=== PATIENT | female | born 1990 | race Caucasian/White ===

== ENCOUNTER 2017-08-07 21:47 | Emergency (ER) | payer OTHER ==
[~2017-08-07] VITALS: Ht 162.6 cm; Wt 52.2 kg
[2017-08-08] MEDS ORDERED: KETO10TA2 PO (01:36)
== END 2017-08-08 02:04 | disposition home or self-care (01) ==
LOC: ER 21:47
DX: R10.2 Pelvic and perineal pain (principal)

== ENCOUNTER → 2018-02-24 | Emergency (ER) | payer OTHER ==
[~2018-02-24] VITALS: Ht 162.6 cm; Wt 54.4 kg
[~2018-02-24] MED LIST: KETO10TA2 PO
== END | disposition home or self-care (01) ==
LOC: ER 20:47
DX: R53.81 Other malaise (principal); F06.4 Anxiety disorder due to known physiological condition

== ENCOUNTER 2020-01-30 21:51 | Emergency (ER) | payer OTHER ==
[~2020-01-30] VITALS: Ht 162.6 cm; Wt 58.5 kg
== END 2020-01-30 22:51 | disposition home or self-care (01) ==
LOC: ER 21:51
DX: R20.0 Anesthesia of skin (principal); R51.9 Headache, unspecified; Z03.818 Encounter for observation for suspected exposure to other biological agents ruled out

== ENCOUNTER 2020-08-14 22:22 | Emergency (ER) | payer OTHER ==
[~2020-08-14] VITALS: Ht 162.6 cm; Wt 62.6 kg
[2020-08-15] MEDS ORDERED: FLONASE16 GM NASAL (03:20)
[2020-08-15] MEDS ORDERED: ZYNCOF 20-400120 ML PO (03:20)
== END 2020-08-15 03:56 | disposition home or self-care (01) ==
LOC: ER 22:22
DX: B34.9 Viral infection, unspecified (principal); J06.9 Acute upper respiratory infection, unspecified; Z11.52 Encounter for screening for COVID-19

== ENCOUNTER 2021-04-26 22:38 | Emergency (ER) | payer OTHER ==
[~2021-04-26] VITALS: Ht 162.6 cm; Wt 63.0 kg
[~2021-04-26 22:38] MED LIST changes: +FLONASE16 GM NASAL; +ZYNCOF 20-400120 ML PO
[2021-04-26] MEDS ORDERED: SYMAX DUOTAB0.375 MG (23:27)
== END 2021-04-27 01:10 | disposition home or self-care (01) ==
LOC: ER 22:38
DX: K29.70 Gastritis, unspecified, without bleeding (principal)

== ENCOUNTER 2022-02-10 17:37 | Emergency (ER) | payer OTHER ==
[~2022-02-10] VITALS: Ht 162.6 cm; Wt 61.7 kg
[~2022-02-10 17:37] MED LIST changes: +SYMAX DUOTAB0.375 MG
[2022-02-10] MEDS ORDERED: PEPCID AC20 MG PO (18:03)
== END 2022-02-10 23:44 | disposition home or self-care (01) ==
LOC: ER 17:37
DX: N39.0 Urinary tract infection, site not specified (principal)

== ENCOUNTER 2023-05-07 11:29 | Emergency (ER) | payer OTHER ==
[~2023-05-07] VITALS: Ht 162.6 cm; Wt 69.9 kg
[~2023-05-07 11:29] MED LIST changes: +PEPCID AC20 MG PO
[2023-05-07 12:17] LABS: HEMOGLOBIN 13.6 g/dL (12.0-15.00); MEAN CELL VOLUME 86.9 fL (80.00-100.00); MEAN CORPUSCULAR HEMOGLOBIN 29.5 pg (27.00-32.0); MEAN CORPUSCULAR HGB CONC 33.9 g/dl (32.0-36.0); PLATELET COUNT 311 K/uL (150-450); RED CELL DISTRIBUTION WIDTH 13.2 % (11.5-14.5)
[2023-05-07 13:05] LABS: URINE APPEARANCE Clear; URINE BILIRRUBIN Negative (NEGATIVE); URINE BLOOD Small; URINE COLOR Yellow; URINE GLUCOSE Negative (NEGATIVE); URINE LEUKOCYTE Negative; URINE NITRATE Negative; URINE PROTEIN Negative (NEGATIVE); URINE UROBILINOGEN 0.2 E.U./dl
[2023-05-07 13:08] LABS: URINE BACTERIA 1929.9 uL (0.0-1933); URINE EPITHELIAL CELLS 17.9 uL (0.0-38.8); URINE RBC 9.7 uL (0.0-20.8); URINE WBC 8.3 uL (0.0-23.2)
[2023-05-07] MEDS ORDERED: DICLOFENAC SODI75 MG PO (17:12)
== END 2023-05-07 17:24 | disposition home or self-care (01) ==
LOC: ER 11:29
PROVIDERS: Emergency Medicine
DX: R10.9 Unspecified abdominal pain (principal)

== ENCOUNTER 2025-01-05 18:03 | Emergency (ER) | payer OTHER ==
[~2025-01-05] VITALS: Ht 162.6 cm; Wt 65.8 kg
[~2025-01-05 18:03] MED LIST changes: +DICLOFENAC SODI75 MG PO
[2025-01-05 19:10] LABS: BASO % 0.5 % (0.1-1.2); EOS # 0.03 (0.04-0.54); EOS % 0.4 % (0.7-7.0); LYMPH # 2.55 (1.18-3.74); LYMPH % 32.3 % (19.3-53.1); MEAN PLATELET VOLUME 9.70 fl (9.4-12.4); MONO # 0.57 (0.24-0.82); MONO % 7.2 % (4.7-12.5); NEUT # 4.69 (1.56-6.13); NEUT % 59.5 % (34.0-71.1); RED CELL DISTRIBUTION WIDTH 12.4 % (11.6-14.4)
[2025-01-05 19:58] LABS: ALT/SGPT 21.0 U/L (12-78); AST/SGOT 13.0 U/L (15-37); BILIRUBIN TOTAL 0.46 mg/dL (0.3-1.2); BUN CREA RATIO 16.0 (7.0-25.0); CREATININE SERUM 0.75 mg/dL (0.55-1.02); GFR 89.55; GLOBULINA 3.2 G/DL (2.4-3.5); GLUCOSE FASTING 76.0 mg/dL (65-100); OSMOLALITY SERUM 283.0 MOSM/KG (275-295)
[2025-01-05 20:25] LABS: URINE APPEARANCE Clear; URINE BILIRRUBIN Negative (NEGATIVE); URINE BLOOD Moderate; URINE COLOR Yellow; URINE GLUCOSE Negative (NEGATIVE); URINE KETONE Trace (NEGATIVE); URINE LEUKOCYTE Trace; URINE NITRATE Negative; URINE PROTEIN Negative (NEGATIVE); URINE UROBILINOGEN 0.2 E.U./dl
[2025-01-05 20:26] LABS: URINE BACTERIA 4373.6 uL (0.0-1933); URINE EPITHELIAL CELLS 42.4 uL (0.0-38.8); URINE RBC 21.8 uL (0.0-20.8); URINE WBC 27.2 uL (0.0-23.2)
[2025-01-05 20:52] LABS: URINE CAST 0.14 uL (0.0-1.40)
[2025-01-05] MEDS ORDERED: CEFTRIAXONE SODIUM 1,000 MG VIAL IM STA (21:12)
[2025-01-05] MEDS ORDERED: CEFTRIAXONE SODIUM 1,000 MG VIAL ONE (21:14)
== END 2025-01-05 21:34 | disposition home or self-care (01) ==
LOC: ER 18:03
PROVIDERS: General Practice
DX: N39.0 Urinary tract infection, site not specified (principal); R31.9 Hematuria, unspecified
CPT/HCPCS: 36415; 96372; 99282; J0696

== ENCOUNTER 2025-01-18 21:00 | Emergency (ER) | payer OTHER ==
[~2025-01-18] VITALS: Ht 162.6 cm; Wt 69.9 kg
[2025-01-18] MEDS ORDERED: 0.9 % SODIUM CHLORIDE 1,000 ML IV SCH (22:00)
[2025-01-18] MEDS ORDERED: KETOROLAC TROMETHAMINE 30 MG VIAL IV ONE (22:00)
[2025-01-18] MEDS ORDERED: FAMOTIDINE/PF 20 MG/2 ML VIAL IV ONE (22:00)
[2025-01-18] MEDS ORDERED: FAMOTIDINE/PF 20 MG/2 ML VIAL ONE (23:02)
[2025-01-18] MEDS ORDERED: KETOROLAC TROMETHAMINE 30 MG VIAL ONE (23:02)
[2025-01-19 01:28] LABS: URINE APPEARANCE Clear; URINE BILIRRUBIN Negative (NEGATIVE); URINE BLOOD Moderate; URINE COLOR Yellow; URINE GLUCOSE Negative (NEGATIVE); URINE KETONE Trace (NEGATIVE); URINE LEUKOCYTE Trace; URINE NITRATE Negative; URINE PROTEIN Negative (NEGATIVE); URINE UROBILINOGEN 0.2 E.U./dl
[2025-01-19 01:36] LABS: URINE BACTERIA 3352.8 uL (0.0-1933); URINE EPITHELIAL CELLS 20.2 uL (0.0-38.8); URINE RBC 21.7 uL (0.0-20.8); URINE WBC 37.8 uL (0.0-23.2)
[2025-01-19 01:50] LABS: BASO % 0.5 % (0.1-1.2); EOS # 0.07 (0.04-0.54); EOS % 0.9 % (0.7-7.0); LYMPH # 2.57 (1.18-3.74); LYMPH % 33.9 % (19.3-53.1); MEAN PLATELET VOLUME 11.40 fl (9.4-12.4); MONO # 0.62 (0.24-0.82); MONO % 8.2 % (4.7-12.5); NEUT # 4.25 (1.56-6.13); NEUT % 56.2 % (34.0-71.1); RED CELL DISTRIBUTION WIDTH 12.3 % (11.6-14.4)
[2025-01-19 01:55] LABS: URINE CAST 0.14 uL (0.0-1.40)
[2025-01-19 02:15] LABS: ERYTHROCYTE SEDIMENTATION RATE 19 mm/hr (0-20)
[2025-01-19 02:23] LABS: INR 1.03
[2025-01-19 02:26] LABS: ALT/SGPT 23.0 U/L (12-78); AST/SGOT 24.0 U/L (15-37); BILIRUBIN TOTAL 0.43 mg/dL (0.3-1.2); BUN CREA RATIO 19.0 (7.0-25.0); CREATININE SERUM 0.81 mg/dL (0.55-1.02); GFR 81.94; GLOBULINA 4.1 G/DL (2.4-3.5); GLUCOSE FASTING 96.0 mg/dL (65-100); OSMOLALITY SERUM 284.0 MOSM/KG (275-295)
[2025-01-19] MEDS ORDERED: SUCRALFATE 1 G TABLET PO STA (02:43)
[2025-01-19] MEDS ORDERED: PEPCID40 MG PO (05:24)
[2025-01-19] MEDS ORDERED: PROTONIX40 MG PO (05:24)
[2025-01-19] MEDS ORDERED: CARAFATE1 GM PO (05:24)
[2025-01-19] MEDS ORDERED: CEPHALEXIN250 MG/5 M PO (05:25)
== END 2025-01-19 05:39 ==
LOC: ER 21:01
PROVIDERS: Student in an Organized Health Care Education/Training Program
DX: K21.9 Gastro-esophageal reflux disease without esophagitis (principal); N39.0 Urinary tract infection, site not specified
CPT/HCPCS: 36415; 74177; 96365; 96366; 99283; J3490; J7030; Q9965